=== PATIENT | female | born 1975 | race Caucasian/White ===

== ENCOUNTER 2019-07-28 22:30 | Emergency (ER) | payer OTHER ==
[~2019-07-28] VITALS: Ht 172.7 cm; Wt 74.8 kg
[2019-07-28 23:43] VITALS: BP 160/98
== END 2019-07-29 02:01 | disposition left against medical advice (07) ==
LOC: EDBD 22:30 → ER 22:37
DX: S41.112A Laceration without foreign body of left upper arm, initial encounter (principal); S61.512A Laceration without foreign body of left wrist, initial encounter; T76.21XA Adult sexual abuse, suspected, initial encounter; S30.810A Abrasion of lower back and pelvis, initial encounter; X58.XXXA Exposure to other specified factors, initial encounter; Y93.89 Activity, other specified; Y92.89 Other specified places as the place of occurrence of the external cause; Y99.8 Other external cause status
CPT/HCPCS: 36415; 70450; 72125; 73030; 73060; 73110; 80320

== ENCOUNTER 2020-04-26 22:15 | Emergency (ER) | payer OTHER ==
[~2020-04-26] VITALS: Ht 172.7 cm; Wt 79.4 kg
[2020-04-26 22:38] VITALS: BP 138/102
== END 2020-04-27 02:49 | disposition short-term general hospital (02) ==
LOC: ER 22:15
DX: T74.21XA Adult sexual abuse, confirmed, initial encounter (principal)

== ENCOUNTER 2022-03-29 19:13 | Emergency (ER) | payer OTHER ==
[~2022-03-29] VITALS: Ht 170.2 cm; Wt 81.6 kg
[2022-03-30 02:27] VITALS: BP 128/85
[2022-03-30 03:10] LABS: Basophils # (auto) 0.1 10 ^3/uL (0-0.2); Basophils % (auto) 1.1 % (0.0-2.0); Eosinophils # (auto) 0.3 10 ^3/uL (0-0.8); Eosinophils % (auto) 2.7 % (0.0-7.0); Hematocrit 40.4 % (36.0-46.0); Hemoglobin 13.5 g/dL (12.2-16.2); Lymphocytes # (auto) 1.7 10 ^3/uL (0.4-5.4); Lymphocytes % (auto) 18.2 % (10.0-50.0); Mean Corpuscular Hemoglobin 29.8 pg (28.0-32.0); Mean Corpuscular Hgb Conc. 33.4 g/dL (32.0-36.0); Mean Corpuscular Volume 89.3 fL (80.0-100.0); Monocytes # (auto) 0.9 10 ^3/uL (0-1.3); Monocytes % (auto) 9.3 % (0.0-12.0); Neutrophils # (auto) 6.6 10 ^3/uL (1.6-8.6); Neutrophils % (auto) 68.7 % (37.0-80.0); Nucleated Red Blood Cells % 0.1 %; Red Blood Cells 4.53 10^6/uL (4.0-5.20); White Blood Cell 9.5 10^3/uL (4.4-10.8)
[2022-03-30 03:28] LABS: Albumin 3.3 g/dL (3.4-5.0); Calcium 8.6 mg/dL (8.5-10.1); Potassium 3.7 mmol/L (3.5-5.1)
[2022-03-30 03:32] LABS: BUN/Creatinine Ratio 12.9; Bilirubin, Total 0.3 mg/dL (0.2-1.0); CRP High Sensitivity 0.41 mg/dL (< 0.3); Total Protein 7.2 g/dL (6.4-8.2)
[2022-03-30] MEDS ORDERED: CEPH-509 PO (04:21)
[2022-03-30] MEDS ORDERED: NEOMYCIN-BACITRACIN-POLYM 15GM TOP OINT TOP SCH (06:00)
== END 2022-03-30 06:06 | disposition home or self-care (01) ==
LOC: ER 19:13
DX: S90.861A Insect bite (nonvenomous), right foot, initial encounter (principal); L03.115 Cellulitis of right lower limb; Z90.49 Acquired absence of other specified parts of digestive tract; Z90.89 Acquired absence of other organs; Z79.899 Other long term (current) drug therapy; W57.XXXA Bitten or stung by nonvenomous insect and other nonvenomous arthropods, initial encounter; Y93.89 Activity, other specified; Y92.89 Other specified places as the place of occurrence of the external cause; Y99.8 Other external cause status
CPT/HCPCS: 36415; 80053; 85025; 86141